=== PATIENT | male | born 1960 | race Caucasian/White ===

== ENCOUNTER 2018-08-04 16:11 | Emergency (ER) | payer MEDICARE, MEDICAID ==
[2018-08-04] MEDS ORDERED: ONDANSETRON HCL INJ/PF 4 MG/2 ML SDV IM ONE (16:47)
[2018-08-04] MEDS ORDERED: NORMAL SALINE 1000 ML 1,000 ML IV ONE (16:48)
--- NOTE | 2018-08-04 16:52 | ER Document Report ---
ED Medical Screen (RME) - General Chief Complaint: Nausea/Vomiting Stated Complaint: NAUSEA Time Seen by Provider: 08/04/18 16:44 Notes: 57-year-old male patient with history of hypertension not on medicines now, and type 2 diabetes taking Invokana recently moved to [place] from [facility]. He reports onset yesterday of dry heaves. He had a large normal bowel movement yesterday, and has been urinating today. He states that the vomiting is similar to what he has had with a kidney stone in the past, but there is no pain in his back or flank associated this time. He states he is not really having any pain anywhere. He is almost incessantly dry heaving. I have greeted and performed a rapid initial assessment of this patient. A comprehensive ED assessment and evaluation of the patient, analysis of test results and completion of the medical decision making process will be conducted by additional ED providers. TRAVEL OUTSIDE OF THE [place] IN LAST 30 DAYS: No - Related Data Allergies/Adverse Reactions: No Known Allergies Allergy (Unverified 08/04/18 16:43) Past Medical History - Social History Chew tobacco use (# tins/day): No Frequency of alcohol use: Social Drug Abuse: None Endocrine Medical History: Reports: Hx Diabetes Mellitus Type 2 Renal/ Medical History: Denies: Hx Peritoneal Dialysis Past Surgical History: Reports: Hx Orthopedic Surgery Physical Exam - Vital signs Vitals: Temp Pulse Resp BP Pulse Ox 97.5 F 102 H 24 H 166/107 H 98 08/04/18 16:29 08/04/18 16:29 08/04/18 16:29 08/04/18 16:29 08/04/18 16:29 Course - Vital Signs Vital signs: Temp Pulse Resp BP Pulse Ox 97.5 F 102 H 24 H 166/107 H 98 08/04/18 16:29 08/04/18 16:29 08/04/18 16:29 08/04/18 16:29 08/04/18 16:29
[2018-08-04] MEDS ORDERED: METOCLOPRAMIDE HCL INJ/PF 10 MG/2 ML SDV IV ONE ×2 (17:09→18:53)
[2018-08-04 17:26] LABS: ABSOLUTE BASOPHILS # (AUTO) 0.1 10^3/uL (0.0-0.2); ABSOLUTE EOSINOPHILS # (AUTO) 0.1 10^3/uL (0.0-0.6); ABSOLUTE LYMPHOCYTES (AUTO) 1.9 10^3/uL (0.5-4.7); ABSOLUTE NEUT (AUTO) 8.8 10^3/uL (1.7-8.2); BASOPHILS % (AUTO) 0.5 % (0-2); EOSINOPHILS % (AUTO) 0.8 % (0-6); HEMATOCRIT 53.4 % (37.9-51.0); HEMOGLOBIN 18.4 g/dL (13.5-17.0); MEAN CORPUSCULAR HEMOGLOBIN 29.8 pg (27.0-33.4); MEAN CORPUSCULAR HGB CONC 34.5 g/dL (32.0-36.0); MEAN CORPUSCULAR VOLUME 86 fl (80-97); MONOCYTES % (AUTO) 8.2 % (3-13); PLATELET COUNT 265 10^3/uL (150-450); RED CELL DISTRIBUTION WIDTH 13.8 % (11.5-14.0); SEGMENTED NEUTROPHILS % (AUTO) 74.5 % (42-78); TOTAL CELLS COUNTED % (AUTO) 100 %; WHITE BLOOD COUNT 11.8 10^3/uL (4.0-10.5)
[2018-08-04 17:45] LABS: ALANINE AMINOTRANSFERASE 18 U/L (21-72); ALBUMIN 4.6 g/dL (3.5-5.0); ALKALINE PHOSPHATASE 124 U/L (38-126); ANION GAP 17 (5-19); ASPARTATE AMINO TRANSFERASE 19 U/L (17-59); BILIRUBIN,DIRECT 0.4 mg/dL (0.0-0.4); BILIRUBIN,TOTAL 0.8 mg/dL (0.2-1.3); BLOOD UREA NITROGEN 18 mg/dL (7-20); CARBON DIOXIDE 21 mmol/L (22-30); CHLORIDE 103 mmol/L (98-107); CREATINE KINASE 79 U/L (55-170); GLUCOSE 188 mg/dL (75-110); SODIUM 141.3 mmol/L (137-145); TOTAL PROTEIN 7.9 g/dL (6.3-8.2)
[2018-08-04 17:57] LABS: CREATINE KINASE MB 1.58 ng/mL (<4.55)
[2018-08-04 18:00] LABS: TROPONIN I < 0.012 ng/mL
[2018-08-04] MEDS ORDERED: IPRATROPIUM/ALBUTEROL 0.5-2.5 MG/3 ML AMPUL NEB ONE (18:53)
[2018-08-04] MEDS ORDERED: LORAZEPAM INJ 2 MG/1 ML VIAL IV ONE (18:53)
--- NOTE | 2018-08-04 18:57 | ER Document Report ---
ED General - General Chief Complaint: Nausea/Vomiting Stated Complaint: NAUSEA Time Seen by Provider: 08/04/18 16:44 Notes: Patient is a 57-year-old male with a past medical history of COPD, current tobacco smoker, hypertension, diabetes, presents with complaints of 24 hours of nausea and dry heaving. The patient is somewhat difficult historian. He repeatedly states "I am just sick". He states that symptoms have been ongoing since onset and came on relatively gradually. Nothing seems to improve or worsen his symptoms. Denies history of similar symptoms in the past. He denies any associated abdominal pain but does state that he feels somewhat bloated diffusely throughout his abdomen. He denies any prior abdominal surgical history. No history of small bowel obstructions. He has not seen his general doctor regarding today's concerns. No fever. TRAVEL OUTSIDE OF THE [place] IN LAST 30 DAYS: No - Related Data Allergies/Adverse Reactions: No Known Allergies Allergy (Unverified 08/04/18 16:43) Past Medical History - General Information source: Patient - Social History Smoking Status: Current Every Day Smoker Cigarette use (# per day): Yes - 1 pack/day Chew tobacco use (# tins/day): No Smoking Education Provided: Yes - Smoking cessation counseling was provided for 4 minutes at the bedside Frequency of alcohol use: Social Drug Abuse: None Family History: Reviewed & Not Pertinent Patient has suicidal ideation: No Patient has homicidal ideation: No Endocrine Medical History: Reports: Hx Diabetes Mellitus Type 2 Renal/ Medical History: Denies: Hx Peritoneal Dialysis Past Surgical History: Reports: Hx Orthopedic Surgery Review of Systems - Review of Systems Notes: Constitutional: Negative for fever. HENT: Negative for sore throat. Eyes: Negative for visual changes. Cardiovascular: Negative for chest pain. Respiratory: Negative for shortness of breath. Gastrointestinal: Negative for abdominal pain, positive for nausea and dry heaving Genitourinary: Negative for dysuria. Musculoskeletal: Negative for back pain. Skin: Negative for rash. Neurological: Negative for headaches, weakness or numbness. 10 point ROS negative except as marked above and in HPI. Physical Exam - Vital signs Vitals: Temp Pulse Resp BP Pulse Ox 97.5 F 102 H 24 H 166/107 H 98 08/04/18 16:29 08/04/18 16:29 08/04/18 16:29 08/04/18 16:29 08/04/18 16:29 Interpretation: Hypertensive, Tachycardic Notes: PHYSICAL EXAMINATION: GENERAL: Appears moderately uncomfortable, somewhat agitated HEAD: Atraumatic, normocephalic. EYES: Pupils equal round and reactive to light, extraocular movements intact, sclera anicteric, conjunctiva are normal. ENT: nares patent, oropharynx clear without exudates. Moist mucous membranes. NECK: Normal range of motion, supple without lymphadenopathy LUNGS: Breath sounds clear to auscultation bilaterally and equal. No wheezes rales or rhonchi. HEART: Regular tachycardia without murmurs ABDOMEN: Soft, mild tenderness on palpation of the left lower quadrant and epigastrium but no other localized areas of tenderness, normoactive bowel sounds. No guarding, no rebound. No masses appreciated. EXTREMITIES: Normal range of motion, no pitting or edema. No cyanosis. NEUROLOGICAL: No focal neurological deficits. Moves all extremities spontaneously and on command. PSYCH: Somewhat agitated, moderately difficult to redirect SKIN: Warm, Dry, normal turgor, no rashes or lesions noted. Course - Re-evaluation Re-evalutation: 08/04/18 18:55 Patient presents somewhat agitated, restless, rolling around in the bed. He appears to have some component of hyperventilation and anxiety. He is complaining of dry heaving without actually producing any emesis by his own report. He states repeatedly "I can drink all I want nothing comes up when I start heaving". He states his last bowel movement was over 24 hours ago. He does state that his abdomen feels bloated but denies any localized abdominal pain. On exam he does have some focal left lower quadrant abdominal tenderness as well as some generalized upper abdominal discomfort most localized to the epigastrium. Initial laboratories show findings consistent with hemoconcentration on CBC otherwise unremarkable. On exam patient does also have scant expiratory wheezing, has not taken a breathing treatment since this morning. He denies associated chest pain today. Initial vitals show tachycardia and significant hypertension into the 190s systolic. Will provide metoclopramide, lorazepam as patient does appear to have a significant component of anxiety to his presentation, IV fluid resuscitation. Will add on lipase to initial laboratories. Will also obtain a troponin for screening for possible atypical presentation of [place]. Given the patient's degree of discomfort , unable to stop rolling out of the bed and complaining of severe feelings of unwellness will proceed with a CT of the abdomen pelvis to evaluate for possible small bowel obstruction, less likely acute bowel perforation, localized colitis. 08/04/18 21:18 Lipase and troponin are both normal. Repeat abdominal exam is benign without any tenderness. The patient currently denies any ongoing bloating or discomfort. He states his nausea is much better. He has not had any dry heaving episodes in over [address] the abdomen pelvis without any acute pathology although does incidentally note SMA and iliac artery stenoses of which I have informed the patient. I have advised him to discontinue smoking immediately and he will need to follow-up regarding these narrowing of the abdominal arterial supply. I have printed his CT report and have provided him with a copy. I do not believe that the patient has mesenteric ischemia as the etiology of his presentation as he was very clear to state that at no point did he have actual abdominal pain but more of an abdominal bloating. There was never pain out of portion to exam. There is no evidence of ischemic bowel. His symptoms have all completely resolved at this point and he feels well enough to go home. At this time will discharge with return precautions and follow-up recommendations. Verbal discharge instructions given a the bedside and opportunity for questions given. Medication warnings reviewed. Patient is in agreement with this plan and has verbalized understanding of return precautions and the need for primary care follow-up in the next 24-72 hours. 08/05/18 02:52 - Vital Signs Vital signs: Temp Pulse Resp BP Pulse Ox 97.4 F 102 H 16 173/88 H 96 08/04/18 21:43 08/04/18 16:29 08/04/18 21:33 08/04/18 21:33 08/04/18 21:33 - Laboratory Result Diagrams: 08/04/18 17:04 08/04/18 17:04 Laboratory results interpreted by me: 08/04/18 08/04/18 17:04 17:04 WBC 11.8 H RBC 6.20 H Hgb 18.4 H Hct 53.4 H Absolute Neutrophils 8.8 H Carbon Dioxide 21 L Glucose 188 H ALT 18 L - Diagnostic Test Radiology reviewed: Reports reviewed Discharge - Discharge Clinical Impression: Abdominal bloating, Superior mesenteric artery stenosis, Iliac artery stenosis , bilateral Nausea and vomiting Qualifiers: Vomiting type: unspecified Vomiting Intractability: non-intractable Qualified Code(s): R11.2 - Nausea with vomiting, unspecified Condition: Good Disposition: HOME, SELF-CARE Additional Instructions: You have been seen in the Emergency Department (ED) today for nausea and vomiting. Your work up today has not shown a clear cause for your symptoms. You have been prescribed Zofran; please use as prescribed as needed for your nausea. Please take famotidine 40 mg twice daily for the next 2 weeks. Follow up with your doctor as soon as possible regarding today's emergent visit and your symptoms of nausea. Return to the Emergency Department (ED) if you develop abdominal pain, bloody vomiting, bloody diarrhea, if you are unable to tolerate fluids due to vomiting , or if you develop other symptoms that concern you. As we discussed, you also need to follow-up with your primary care doctor regarding the incidental findings on your CT scan today which show blockages in the arterial supply to your abdominal organs. This is likely related to your chronic medical conditions of diabetes and smoking. As we discussed please consider smoking cessation. Prescriptions: Famotidine 40 mg PO BID #60 tablet
--- NOTE | 2018-08-04 19:19 | EKG REPORT ---
SEVERITY:- NORMAL ECG - SINUS RHYTHM : Confirmed by: Zoey Humphries MD 04-Aug-2018 19:18:24
--- NOTE | 2018-08-04 20:29 | RADIOLOGY REPORT (SQ) ---
EXAM DESCRIPTION: CT ABD/PELVIS WITH IV ONLY COMPLETED DATE/TIME: 08/04/2018 8:12 pm REASON FOR STUDY: Generalized abdominal pain, nausea and vomiting COMPARISON: None. TECHNIQUE: CT scan of the abdomen and pelvis performed using helical scanning technique with dynamic intravenous contrast injection. No oral contrast. Images reviewed with lung, soft tissue, and bone windows. Reconstructed coronal and sagittal MPR images reviewed. Delayed images for evaluation of the urinary system also acquired. All images stored on PACS. All CT scanners at this facility use dose modulation, iterative reconstruction, and/or weight based d osing when appropriate to reduce radiation dose to as low as reasonably achievable (ALARA). [facility]: Dose Right [facility]: CareDose [facility]: Dose Right [facility]: Teradose 4D [facility]: GiveLoop CONTRAST TYPE AND DOSE: 96 mL IV Omnipaque 350- low osmolar. RENAL FUNCTION: Creatinine 0.73 RADIATION DOSE: 23 mGy. LIMITATIONS: None. FINDINGS: LOWER CHEST: No significant findings. No nodules or infiltrates. LIVER: Normal size. No masses. No dilated ducts. SPLEEN: Normal size. No focal lesions. PANCREAS: No masses. No significant calcifications. No adjacent inflammation or peripancreatic fluid collections. Pancreatic duct not dilated. GALLBLADDER: No identified stones by CT criteria. No inflammatory changes to suggest cholecystitis. ADRENAL GLANDS: No significant masses or asymmetry. RIGHT KIDNEY AND URETER: No solid masses. No significant calcifications. No hydronephrosis or hyd roureter. LEFT KIDNEY AND URETER: No solid masses. No significant calcifications. No hydronephrosis or hydr oureter. AORTA AND VESSELS: No abdominal aortic aneurysm. Greater than 75% stenosis proximal SMA, best shown on coronal images 35-41 and sagittal images 55-58. Celiac artery, bilateral renal artery are patent. Moderate at least 50% stenosis bilateral proximal common iliac arteries RETROPERITONEUM: No retroperitoneal adenopathy, hemorrhage or masses. BOWEL AND PERITONEAL CAVITY: No masses or inflammatory changes. No free fluid or peritoneal masses. No bowel obstruction. Moderate stool in the colon APPENDIX: Normal. PELVIS: No mass. No free fluid. Normal bladder. ABDOMINAL WALL: No masses. No hernias. BONES: No significant or acute findings. OTHER: No other significant finding. IMPRESSION: No CT evidence of bowel obstruction or free intraperitoneal air or fluid. Greater than 75% proximal SMA stenosis TECHNICAL DOCUMENTATION: JOB ID: [id number] Quality ID # [id number]: Final reports with documentation of one or more dose reduction techniques (e.g., Au tomated exposure control, adjustment of the mA and/or kV according to patient size, use of iterative reconstruction technique) 2010 [employer]- All Rights Reserved Reading location - IP/workstation name: [email or web address]
[2018-08-04] MEDS ORDERED: SUCRALFATE 1 GM TABLET PO ONE (21:18)
[2018-08-04] MEDS ORDERED: FAMOTIDINE 20 MG TABLET PO ONE (21:18)
[2018-08-04] MEDS ORDERED: ONDANSETRON ODT 4 MG TAB (6 TAB/ER DISP) PO PRN (21:22)
[2018-08-04 21:39] VITALS: BP 173/88
== END 2018-08-04 21:50 | disposition home or self-care (01) ==
LOC: ER 16:11
DX: K55.1 Chronic vascular disorders of intestine (principal); I72.3 Aneurysm of iliac artery; R14.0 Abdominal distension (gaseous); R11.2 Nausea with vomiting, unspecified; J44.9 Chronic obstructive pulmonary disease, unspecified; I10 Essential (primary) hypertension; E11.9 Type 2 diabetes mellitus without complications; F17.210 Nicotine dependence, cigarettes, uncomplicated
CPT/HCPCS: 93005; 96376; 99406; 94640; 99285; 96372; 96361; 96374; 96375; 36415; 82553; 82550; 83690; 85025; 80053; 84484; 74177; 93010; A9270 ×4; J2765; J2060; J2405; J7030; J7620